=== PATIENT | female | born 1995 | race Hispanic/Latino ===

== ENCOUNTER 2017-07-06 13:38 | Emergency (ER) | payer OTHER ==
[~2017-07-06] VITALS: Ht 162.6 cm; Wt 60.6 kg
[2017-07-06 15:42] LABS: HEMOGLOBIN 11.3 G/DL (11.9-15.5); MCH 29.8 PG (29.0-34.0); MCHC 33.2 G/DL (30.0-36.0); MCV 89.7 FL (83-99); RBC DIS.WIDTH-CV 12.4 % (11.8-14.6); RBC DIS.WIDTH-SD 40.9 % (39-53); RED BLOOD COUNT 3.79 M/uL (3.80-5.20); WHITE BLOOD COUNT 6.7 K/uL (4.1-10.2)
[2017-07-06 15:51] LABS: CHLORIDE 108 mEq/L (99-109); POTASSIUM 4.2 mEq/L (3.7-5.4); SODIUM 137 mEq/L (136-147)
[2017-07-06 15:53] LABS: GLUCOSE 83 mg/dL (70-99)
[2017-07-06 15:57] LABS: CREATININE 0.7 mg/dL (0.6-1.3); GFR ESTIMATE (CALCULATED) > 59 mL/min/; UREA NITROGEN (BUN) 6 mg/dL (9-23)
[2017-07-06 16:05] LABS: QUANTITATIVE HCG < 4.0 MIU/ML
[2017-07-06 16:29] LABS: PLAT.SUFFICIENCY ADEQUATE; PLATELET COUNT 201 K/uL (156-360)
[2017-07-06 16:30] VITALS: BP 119/69
[2017-07-06] MEDS ORDERED: REGLAN10 MG PO (16:33)
[2017-07-06] MEDS ORDERED: MOTRIN600 MG PO (16:33)
== END 2017-07-06 16:39 | disposition home or self-care (01) ==
LOC: EME 13:38
PROVIDERS: Nurse Practitioner Family
DX: R51 Headache (principal)
CPT/HCPCS: 80048; 84702; 85027; 99281; 99284; J1885